=== PATIENT | male | born 1985 | race Caucasian/White ===

== ENCOUNTER 2023-10-25 22:02 | Emergency (ER) | payer BC, SELFPAY ==
[2023-10-25] VITALS (14 sets, daily range): BP systolic 94–137; BP diastolic 54–94; PULSE 74–92; TEMP 36.6; O2SAT 95–98; BMI 46.6
--- NOTE | 2023-10-25 22:10 | ED_ITS ---
HPI - Chest Pain General Chief Complaint: Chest Pain Stated Complaint: Chest Pain Time Seen by Provider: 10/25/23 22:07 History of Present Illness HPI narrative: patient presents complaining of chest pain that started within the hour. Pain radiated to the left neck and back. Describes pressure sensation 5/10. Feels short of breath and describes palpitations. No nausea, vomiting or abdominal pain. Feels light headed. Denies past CAD Related Data Home Medications ?Medication ?Instructions ?Recorded ?Confirmed escitalopram oxalate 20 mg tablet mg 10/25/23 omeprazole 20 mg capsule,delayed mg 10/25/23 release Allergies Allergy/AdvReac Type Severity Reaction Status Date / Time trazodone AdvReac Mild Unknown Verified 10/25/23 22:07 Review of Systems ROS Status of ROS 10 or more systems reviewed and unremark able except as noted in history and below PFSH PFSH Social History Little interest or pleasure in doing things: not at all Feeling down, depressed, or hopeless: not at all Exam Constitutional Vital Signs, click to edit/add: Last Vital Signs Temp 97.9 F 10/25/23 22:08 Pulse 81 10/26/23 01:10 Resp 19 10/25/23 22:13 BP 94/54 10/25/23 23:44 Pulse Ox 98 10/26/23 01:10 O2 Del Method Room Air 10/25/23 22:08 Common normals: no apparent distress, average body habitus, oriented x3, no limitations, healthy appearing, alert and well nourished [facility] Common normals: normocephalic and head/scalp atraumatic Eye Common normals: PERRL, EOMs intact bilaterally and conjunctivae normal Respiratory Common normals: normal respiratory effort, no retractions, no use of accessory muscles and clear to auscultation bilaterally Cardio Common normals: regular rate, regular rhythm, S1 normal heart sound and S2 normal heart sound GI Common normals: Normal to inspection, nondistended, normoactive bowel sounds present, soft to palpation and non-tender Extremity Common normals: normal to inspection Neuro Common normals: oriented x3, CN's II-XII intact bilaterally, moves all extremities and no focal motor deficits Psych Appearance: grossly normal Course Vital Signs Vital signs: Vital Signs Temperature 97.9 F 10/25/23 22:08 Pulse Rate 88 10/25/23 22:08 Respiratory Rate 18 10/25/23 22:08 Blood Pressure 137/94 H 10/25/23 22:08 Pulse Oximetry 98 10/25/23 22:08 Oxygen Delivery Method Room Air 10/25/23 22:08 Temperature 97.9 F 10/25/23 22:08 Pulse Rate 81 10/26/23 01:10 Respiratory Rate 19 10/25/23 22:13 Blood Pressure 94/54 10/25/23 23:44 Pulse Oximetry 98 10/26/23 01:10 Oxygen Delivery Method Room Air 10/25/23 22:08 MDM - Chest Pain MDM Narrative Medical decision making narrative: obese patient presents within the hour with complaint of left chest pain radiat ing into his left neck and into his back associated with dyspnea. No nausea or diaphoresis. Treated with Nitro SL and morphine with resolution of pain. Workup in the department neg including d-dimer and serial troponins. Patient admitted to hospitalist service Lab Data Labs: Lab Results 10/25/23 10/26/23 Range/Units 22:15 00:25 WBC 10.5 (4.0-11.0) 10^3/uL RBC 4.93 (4.70-6.10) 10^6/uL Hgb 14.3 (14.0-18.0) g/dL Hct 43.1 (42.0-54.0) % MCV 87.4 (80.0-94.0) fL MCH 29.0 (25.9-34.0) pg MCHC 33.2 (29.9-35.2) g/dL RDW 13.8 (11.0-15.0) % Plt Count 241 (150-450) 10^3/uL MPV 9.8 (9.5-13.5) fL Neut % (Auto) 54.8 (43.0-75.0) % Lymph % (Auto) 35.4 (20.5-60.0) % Dale % (Auto) 7.5 (1.7-12.0) % Eos % (Auto) 1.5 (0.9-7.0) % Baso % (Auto) 0.5 (0.2-2.0) % Neut # (Auto) 5.8 (1.4-6.5) 10^3/uL Lymph # (Auto) 3.7 (1.2-3.8) 10^3/uL Dale # (Auto) 0.8 (0.3-0.8) 10^3/uL Eos # (Auto) 0.2 (0.0-0.7) 10^3/uL Baso # (Auto) 0.1 (0.0-0.1) 10^3/uL Abs Immat Gran (auto) 0.03 (0.00-0.03) 10^3/uL Imm/Tot Granulo (auto) 0.3 (0.0-0.5) % D-Dimer 0.42 (<=0.59) mg/L FEU Sodium 137 (136-145) mmol/L Potassium 3.8 (3.5-5.1) mmol/L Chloride 100 (98-107) mmol/L Carbon Dioxide 30.3 (21.0-32.0) mmol/L Anion Gap 10.5 BUN 23.0 H (7.0-18.0) mg/dL Creatinine 1.50 H (0.70-1.30) mg/dL Est GFR ( Amer) >60 (>=60) Est GFR (Non-Af Amer) 52 L (>=60) BUN/Creatinine Ratio 15.3 Glucose 119 H (74-106) mg/dL Calcium 9.3 (8.5-10.1) mg/dL Troponin I High Sens 5.7 4.8 (4.0-76.1) pg/mL Imaging Data Chest x-ray: Radiologist's impression: ITS Impressions Chest X-Ray 10/25/23 22:12 IMPRESSION: No acute cardiopulmonary disease. This report was generated with voice recognition software. Effort has been made to ensure accuracy of this report, however, occasional wording errors may persist. Please contact our office with any questions. Electronically authenticated by: LINDA ADKINS Date: 10/25/2023 23:04 Discharge Plan Discharge Chief Complaint: Chest Pain Clinical Impression: Chest pain Patient Disposition: Admitted as Observation Prescriptions / Home Meds: No Action omeprazole 20 mg capsule,delayed release(DR/EC) escitalopram oxalate 20 mg tablet Print Language: Sammarinese Referrals: MONICA ARELLANO [Primary Care Provider] - 1 week
--- NOTE | 2023-10-25 22:12 | XR_ITS ---
The [address] [address] Patient Name: FRANKY CHERRY MRN: [id number] date: 1985 Sex: M Assigned Patient Location: ER Current Patient Location: ER Accession/Order Number: [id number] Exam Date: 10/25/2023 22:50 Report Date: 10/25/2023 23:04 At the request of: SUZETTE BENEDICT Procedure: XR chest 1V SINGLE VIEW CHEST: 10/25/2023 10:50 PM EDT CLINICAL HISTORY:chest pain COMPARISONS: None. TECHNIQUE: Single frontal view of the chest, utilizing portable technique. Portable radiography should be considered a technically compromised study. Strongly consider dedicated PA and lateral chest radiographs, as clinically indicated. FINDINGS: LINES AND TUBES: Cardiac monitoring leads and wires overlie the patient. CARDIAC SILHOUETTE: Within normal limits. MEDIASTINAL AND HILAR CONTOUR: Within normal limits. PULMONARY PARENCHYMA AND PLEURA: Lungs are clear. No consolidation, edema, effusion, or pneumothorax. OSSEOUS STRUCTURES:Nothing significant. OTHER COMMENTS:None. XR/XR chest 1V IMPRESSION: No acute cardiopulmonary disease. This report was generated with voice recognition software. Effort has been made to ensure accuracy of this report, however, occasional wording errors may persist. Please contact our office with any questions. Electronically authenticated by: LINDA ADKINS Date: 10/25/2023 23:04
--- NOTE | 2023-10-25 22:12 | ECG_ITS ---
The [facility] Test Date: 2023-10-25 Pat Name: FRANKY CHERRY Department: Room: - Gender: Male [employer] Consultant: : 1985 Requested By: MONICA ARELLANO Order Number: [id number] Reading MD: PATTY REY Measurements Intervals [place] Rate: 86 P: 26 CA: 116 QRS: 8 QRSD: 78 T: 34 QT: 372 QTc: 416 Interpretive Statements 1100 Sinus rhythm 2210 Short CA interval 9150 abnormal ECG No previous ECG available for comparison Electronically Signed On 10-26-2023 6:46:32 EDT by PATTY REY
[2023-10-25 22:30] LABS: Basophils Absolute Auto 0.1 10^3/uL (0.0-0.1); Basophils Percent Auto 0.5 % (0.2-2.0); Eosinophils Absolute Auto 0.2 10^3/uL (0.0-0.7); Eosinophils Percent Auto 1.5 % (0.9-7.0); Hematocrit 43.1 % (42.0-54.0); Hemoglobin 14.3 g/dL (14.0-18.0); Immature Granulocytes Abs Auto 0.03 10^3/uL (0.00-0.03); Immature Granulocytes Pct Auto 0.3 % (0.0-0.5); Lymphocytes Absolute Auto 3.7 10^3/uL (1.2-3.8); Lymphocytes Percent Auto 35.4 % (20.5-60.0); Mean Corpuscular HGB Conc 33.2 g/dL (29.9-35.2); Mean Corpuscular Volume 87.4 fL (80.0-94.0); Mean Platelet Volume 9.8 fL (9.5-13.5); Monocytes Absolute Auto 0.8 10^3/uL (0.3-0.8); Monocytes Percent Auto 7.5 % (1.7-12.0); Neutrophils Absolute Auto 5.8 10^3/uL (1.4-6.5); Neutrophils Percent Auto 54.8 % (43.0-75.0); Platelet Count 241 10^3/uL (150-450); Red Blood Count 4.93 10^6/uL (4.70-6.10); Red Cell Distribution Width 13.8 % (11.0-15.0); White Blood Count 10.5 10^3/uL (4.0-11.0)
[2023-10-25] MEDS: NITROGLYCERIN 0.4 MG BOTTLE PO (22:37)
[2023-10-25 22:49] LABS: Anion Gap 10.5; BUN Creatinine Ratio 15.3; Calcium 9.3 mg/dL (8.5-10.1); Carbon Dioxide 30.3 mmol/L (21.0-32.0); Chloride 100 mmol/L (98-107); Estimated GFR (African America >60 (>=60); Estimated GFR (Non-African Ame 52 (>=60); Glucose 119 mg/dL (74-106); Potassium 3.8 mmol/L (3.5-5.1); Sodium 137 mmol/L (136-145); Troponin I High Sensitivity 5.7 pg/mL (4.0-76.1)
[2023-10-26] VITALS (48 sets, daily range): BP systolic 119; BP diastolic 68; PULSE 65–94; O2SAT 88–98
[2023-10-26] MEDS: MORPHINE SULFATE 4 MG/ML VIAL IV ×3 (00:30→07:46)
[2023-10-26 00:52] LABS: Troponin I High Sensitivity 4.8 pg/mL (4.0-76.1)
[2023-10-26 01:05] LABS: D Dimer 0.42 mg/L FEU (<=0.59)
[2023-10-26] MEDS: NITROGLYCERIN 2% 1 GRAM PACKET 1 GM TD (02:59)
[2023-10-26 08:43] LABS: Troponin I High Sensitivity 13.5 pg/mL (4.0-76.1)
--- NOTE | 2023-10-26 09:00 | CM.NOTE ---
Rounds made in ER with Dr. Childress, discussed with pt diagnosis and plan of care. Dr. Childress will discharge pt to home and schedule outpatient stress testing. Dr. Childress completed outpatient requisition for stress test, case Management faxed to Centralized Scheduling and called and left message. Centralized scheduling will call back to ER with further instructions and scheduling.
--- NOTE | 2023-10-26 10:54 | PM.HP ---
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 As her reached ED ,he also felt short of breath. Patient was worked up for ACS and had normal EKG, CXR, negative d dimer and no sig finding CBC/CMP. He also has negative troponin x 3. Patient's CP improved with morphine and when its wears off, his pain returns. He is fairly active and has not experienced CP in the past. He denies any exertional symptoms in the past including CP, SOB, palpitations. Denies recent injury and has no resp symptoms. Pain is dull aching and not pleuritic. Denies reflux/abdominal pain or association with food. Given his symptoms, age, risk factors, initial workup including EKG/troponins, I have low suspicion that his pain is due to underlying CAD. Patient is medically stable for discharge. He is scheduled for outpatient stress test and will f/u with his PCP after the stress test. . Opioid HPI Opioid Management Most Recent Pain and Opioid Data: Last Pain Scale 5 10/26/23 07:46 Last ED Pain Assessment 10/26/23 07:28 Last MAR Pain Assessment 10/26/23 07:46 Review of Systems ROS Status of ROS 10 or more systems reviewed and unremarkable except as noted in history and below [facility] Medical History (Updated 10/26/23 @ 11:08 by Shaikh Monroe MD) Obesity ?E66.9 - Obesity, unspecified (ICD-10) GERD (gastroesophageal reflux disease) ?K21.9 - Gastro-esophageal reflux disease without esophagitis (ICD-10) MARIA FERNANDA (generalized anxiety disorder) ?F41.1 - Generalized anxiety disorder (ICD-10) Social History (Updated 10/26/23 @ 11:07 by Shaikh Monroe MD) Within the past year, how often did you have a drink containing alcohol: never Score interpretation: A score less than 4 is consistent with normal alcohol consumption. Smoking status: Never smoker Non-prescribed substance use: denies use Little interest or pleasure in doing things: not at all Feeling down, depressed, or hopeless: not at all Meds Home Medications and Allergies Home Medications ?Medication ?Instructions ?Recorded ?Confirmed ?Type escitalopram oxalate 20 mg tablet 20 mg PO DAILY 10/25/23 10/26/23 History omeprazole 20 mg capsule,delayed 20 mg PO .ACB 10/25/23 10/26/23 History release Allergies Allergy/AdvReac Type Severity Reaction Status Date / Time trazodone AdvReac Mild Unknown Verified 10/25/23 22:07 Exam Constitutional Vital Signs, click to edit/add: Last Vital Signs Temp 97.9 F 10/25/23 22:08 Pulse 80 10/26/23 07:40 Resp 13 10/26/23 07:40 BP 119/68 10/26/23 02:21 Pulse Ox 95 10/26/23 07:40 O2 Del Method Room Air 10/25/23 22:08 Documenting provider has reviewed patient's vital signs: yes Common normals: no apparent distress and oriented x3 General appearance: cooperative HENMT Common normals: normocephalic and head/scalp atraumatic Head and scalp: normocephalic and atraumatic Eye Common normals: conjunctivae normal and no scleral icterus Conjunctiva: conjunctiva(e) normal Respiratory Common normals: normal respiratory effort and clear to auscultation bilaterally Effort & inspection: able to speak in complete sentences Auscultation: clear to auscultation bilaterally Cardio Common normals: regular rate, S1 normal heart sound and S2 normal heart sound Rate: regular rate Heart sounds: S1 normal and S2 normal GI Common normals: Normal to inspection, nondistended, normoactive bowel sounds present, soft to palpation, non-tender and no hepatosplenomegaly Palpation: soft and no hepatosplenomegaly Extremity Common normals: no clubbing, cyanosis or edema Neuro Common normals: oriented x3, moves all extremities and no focal motor deficits Psych Common normals: mental status grossly normal, denies hallucinations, denies homicidal ideation and denies suicidal ideation Results Labs Labs: Short CBC 10/25/23 Range/Units 22:15 WBC 10.5 (4.0-11.0) 10^3/uL Hgb 14.3 (14.0-18.0) g/dL Hct 43.1 (42.0-54.0) % Plt Count 241 (150-450) 10^3/uL BMP 10/25/23 22:15 Sodium 137 Potassium 3.8 Chloride 100 Carbon Dioxide 30.3 BUN 23.0 H Creatinine 1.50 H Glucose 119 H Calcium 9.3 Assessment and Plan Assessment and Plan (1) Chest pain: Assessment and Plan: Normal EKG. Negative cardiac enzymes. Persistent pain - not exertional in nature. Likely non cardiac. Scheduled for outpatient stress test - f/u with PCP after stress test. Qualifiers: Chest pain type: unspecified Qualified Code(s): R07.9 - Chest pain, unspecified (2) GERD (gastroesophageal reflux disease): Assessment and Plan: Symptoms controlled on Omeprazole. Qualifiers: Esophagitis presence: esophagitis presence not specified Qualified Code(s): K21.9 - Gastro-esophageal reflux disease without esophagitis (3) MARIA FERNANDA (generalized anxiety disorder): Assessment and Plan: On Lexapro. Patient reports well controlled anxiety. (4) Obesity: Assessment and Plan: Recommend weight loss Qualifiers: Obesity type: due to excess calories Obesity classification: adult class 3 (BMI >= 40) Body mass index: BMI 45.0-49.9 Serious obesity comorbidity presence: without serious comorbidity Qualified Code(s): E66.01 - Morbid (severe) obesity due to excess calories; Z68.42 - Body mass index [BMI] 45.0-49.9, adult
== END 2023-10-26 10:29 | disposition home or self-care (01) ==
PROVIDERS: Emergency Medicine; Emergency Provider Internal Medicine; PCP Family Medicine
DX: R07.9 Chest pain, unspecified (principal); R06.02 Shortness of breath; K21.9 Gastro-esophageal reflux disease without esophagitis; F41.1 Generalized anxiety disorder; E66.01 Morbid (severe) obesity due to excess calories; Z68.42 Body mass index [BMI] 45.0-49.9, adult
CPT/HCPCS: 36415; 71045; 80048; 84484; 85025; 85378; 93005; 96374; 96376; 99285; J2270